=== PATIENT | male | born 1995 | race American Indian/Alaskan Native ===

== ENCOUNTER 2019-11-10 14:03 | Emergency (ER) | payer OTHER ==
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
[2019-11-10 19:24] VITALS: BP 141/81
[2019-11-10] MEDS ORDERED: CYCLOBENZAPRINE 10 MG TAB PO ONE (19:33)
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
== END 2019-11-10 20:13 | disposition home or self-care (01) ==
LOC: ED 14:03
DX: R07.81 Pleurodynia (principal); F17.200 Nicotine dependence, unspecified, uncomplicated; V49.49XA Driver injured in collision with other motor vehicles in traffic accident, initial encounter; Y93.89 Activity, other specified; Y92.488 Other paved roadways as the place of occurrence of the external cause; Y99.8 Other external cause status
CPT/HCPCS: 99283